=== PATIENT | female | born 1950 | race Caucasian/White ===

== ENCOUNTER 2022-02-28 09:45 | Outpatient (RCR) | payer OTHER, MEDICARE, SELFPAY ==
--- NOTE | 2022-01-05 11:46 | PTOPEVAL ---
PHYSICAL THERAPY EVALUATION AND PLAN OF CARE 01-05-22 Thank you for referring Ruth Mahoney to [facility] [place]. She is scheduled to be seen for therapy? 3 x/week for 5 weeks. Please review, sign, date and return this plan of care [facility]. I agree with and certify that the following plan of care is medically necessary. Referring Physician Date Attending Provider: Nikolas Hernandez MD Past Medical History Source of Past Medical History Recalled from Previous Visit, Confirmed with Patient/Family Neurological History Hx Neurological Disorders No Significant History Cardiovascular History Hx Cardiac Disorders No Significant History Respiratory History Hx Respiratory Disorders No Significant History Gastrointestinal History Hx Cholecystectomy Yes Genitourinary History Hx Genitourinary Disorders No Significant History Musculoskeletal History Hx Arthritis Yes: B knee pain; B hip pain Hx Orthopedic Surgery Yes: L elbow fracture with surgical repari Hematological History Hx Hematological Disorders No Significant History Endocrine History Hx Endocrine Disorders No Significant History HEENT History Hx HEENT Disorders No Significant History Integumentary History Hx Skin Disorders No Significant History Reproductive History Hx Reproductive Disorders No Significant History Other History Hx Other Medical Conditions Yes: obesity, recent loss of 66# due to illness/ hospitalization Evaluation Information Problem Diagnosis B LE lymphedema Onset Sep 20, 2021 Prior Level of Function Home Setting Home Type House,Multiple Levels Environmental Barriers Stairs, Greater than 4 Living Situation With Spouse Support Available Local Family Support Mobility Assistive Devices (Used Last 3 None,Cane,Walker, Standard, Months) Wheelchair, Manual Comments Additional Prior Level of Function prior to hospitalization in Comments October, was indep and home without assistive device; [facility] now for rehab, since Nov 22 ; Pain Assessment Timing of Pain Assessment Timing of Pain Assessment Assessment Pain Scale Pain Scale Used Numeric (1 - 10) Self Report Pain Assessment Bilateral Leg(s) Reported Pain Level 6 Pain Description Heavy,Tightness Pain Frequency Chronic,Continuous Pain Aggravating Factors Exercise/Activity,Walking, Weight Bearing/Standing Pain Score Pain Score 6: Self Report Interventions Used Interventions Used By Clinicians Education
--- NOTE | 2022-01-27 10:46 | PCPTNOTE ---
pt signed consent for release of info to [employer] for copy of face sheet/registration sheet and initial evaluation; for pt to obtain home intermittent compression pump;
--- NOTE | 2022-02-11 11:47 | PTOPEVAL ---
PHYSICAL THERAPY REEVALUATION AND UPDATED PLAN OF CARE 02-11-22 Refer to the clinical summary below, for her status today, compared to the initial evaluation. The goals were partially achieved. Continue PT treatment 3x/wk for 3 weeks. Thank you for referring Ruth Chaparroer to [facility].? Please review, sign, date and return this updated plan of care [facility]. I agree with and certify that the following plan of care is medically necessary. Referring Physician Date Attending Provider: Nikolas Hernandez MD Subjective Information Kriss reports: leg is about at Query Text:As Reported By Patient/ the usual size; ordered the Family thigh high garment and is to arrive this weekend; continues to do [facility] for leg strength and walking; Pain Scale Pain Scale Used Numeric (1 - 10) Self Report Pain Assessment Bilateral Leg(s) Reported Pain Level 0 Pain Frequency Chronic,Intermittent Other Pain Description B knees and hips hurt--hips less since injections Lowest Pain Intensity 0 Greatest Pain Intensity 8 Pain Aggravating Factors Walking,Weight Bearing/ Standing General Lower Extremity Range of Motion Gross Lower Extremity Range of Motion sitting knee: R extension (-5) Comments and L knee (-5) to 95' Bed Mobility Assessment Bed Mobility Supine to Sit Ability Minimum Assistance X 1 Sit to Supine Ability Minimum Assistance X 1 Cues Needed for Bed Mobility Tactile Bed Mobility Comments requires assist with legs on/ off mat; Skin Inspection Location Left Lower Extremity Skin Observations Absence of Leg Hair,Dorsum Foot Swelling,Hyperkeratosis, Hyperpigmentation,Hyperplasia, Lipedema,Obesity,Swollen, Squared off Toes Lymphedema Stage I Skin Inspection Comment R LE: no fibrotic tissue over lower leg; from 28 cm from bottom of foot to 16 cm- discoloration of skin- reddish - brown; no dry flaking skin over leg; knee and thigh with good skin color; --------- pt reports dr restarted her lasix today, due to gaining 10 #, had been off it; LE Circumferential Measurement LE Lymphedema Side Left Met
--- NOTE | 2022-02-28 10:45 | PTOPEVAL ---
PHYSICAL THERAPY DISCHARGE 02-28-22 Refer to the clinical summary below, for her status today, compared to the last reevaluation. The goals were partially achieved. Discharge PT services. Thank you for referring Ruth Mahoney to [facility].? Please review, sign, date and return this Discharge report [facility]. I agree with and certify that the following plan of care is medically necessary. Referring Physician Date Attending Provider: Nikolas Hernandez MD Subjective Information Ruth Monterroso reports: doing OK Query Text:As Reported By Patient/ with the thigh high socks; no Family problems with putting them on or taking off; is using her home intermittent compression pump at least 1x/day; going home from [facility] on Mon, in 2 days; has lost 50# in the past 4 months; agree for discharge from PT for legs; Pain Assessment Pain Scale Pain Scale Used Numeric (1 - 10) Self Report Pain Assessment Bilateral Leg(s) Reported Pain Level 2 Pain Description Soreness,Tender on Palpation Radicular Pain Location both legs and knees hurt, with standing up Pain Frequency Acute,Continuous Other Pain Description R posterior calf- over gastroc , raw and tender feeling Lowest Pain Intensity 0 Greatest Pain Intensity 7 Pain Score Pain Score 2: Self Report Gross Lower Extremity Range of Motion in sitting: active knee Comments extension to 0' R and L; able to lift LE's on/off mat without assist; Skin Inspection Location Left Lower Extremity,Right Lower Extremity Skin Observations Absence of Leg Hair,Lipedema, Obesity Palpation Findings Cool Skin Temperature Tissue Texture Firm Lymphedema Stage II Skin Inspection Comment R LE: firmness and redness over distal posterior calf, with reports of tenderness over area; dorsum of foot and toes without edema; minimal redness over lower leg, from bottom of foot to ~ 20 cm L LE: no fibrotic tissue; no edema over dorsum of foot; big and 2nd toe with edema and redness; lower leg with minimal redness to ~ 20 cm
== END 2022-03-01 12:48 | disposition home or self-care (01) ==
LOC: ANHPT 09:45
PROVIDERS: PCP Family Medicine; Referring Provider Family Medicine; Visit Provider Family Medicine
DX: I89.0 Lymphedema, not elsewhere classified (principal)
CPT/HCPCS: 29581; 97140; 97162

== ENCOUNTER 2022-03-31 11:20 | Outpatient (NON) | payer MEDICARE, SELFPAY ==
[2022-03-31 11:48] LABS: Basophils Percent Auto 0.4 % (0.2-1.2); Eosinophils Absolute Auto 0.1 K/mm3 (0-0.3); Eosinophils Percent Auto 1.8 % (0-4.4); Hematocrit 41.4 % (37.0-47.0); Hemoglobin 13.5 g/dL (12.0-15.0); Immature Granulocyte Absolute 0.02 K/mm3 (0.00-0.031); Immature Granulocyte Percent A 0.4 % (0-0.5); Lymphocytes Absolute Auto 1.91 K/mm3 (0.9-3.2); Lymphocytes Percent Auto 42.6 % (18.3-44.2); Mean Corpuscular HGB Conc 32.6 g/dl (32-36); Mean Platelet Volume 10.9 fl (7.4-10.4); Monocytes Absolute Auto 0.3 K/mm3 (0.1-0.6); Monocytes Percent Auto 7.6 % (2.6-8.5); Neutrophils Absolute Auto 2.1 K/mm3 (1.3-6.7); Neutrophils Percent Auto 47.2 % (45.5-73.1); Platelet Count Result 252 k/mm3 (150-375); Red Cell Distribution Width 14.3 % (11.5-14.5); White Blood Count 4.5 K/mm3 (4.5-10.0)
[2022-03-31 11:55] LABS: Alanine Aminotransferase 14 U/L (6-35); Albumin Level 3.7 g/dL (3.5-5.1); Alkaline Phosphatase 87 U/L (38-126); Anion Gap 4 mmol/L (8-16); Aspartate Amino Transferase 20 U/L (14-36); Bilirubin,Total 0.6 mg/dL (0.2-1.3); Blood Urea Nitrogen 15 mg/dL (7-17); Carbon Dioxide 29 mmol/L (22-30); Chloride 104 mmol/L (98-107); Estimated Glomerular Filt Rate > 60; Glucose 92 mg/dL (65-110); Potassium 3.2 mmol/L (3.4-5.0); Sodium 137 mmol/L (137-145)
== END 2022-03-31 11:21 | disposition home or self-care (01) ==
PROVIDERS: PCP Family Medicine; Visit Provider Family Medicine
DX: I89.0 Lymphedema, not elsewhere classified (principal); I10 Essential (primary) hypertension; I26.99 Other pulmonary embolism without acute cor pulmonale; M17.0 Bilateral primary osteoarthritis of knee
CPT/HCPCS: 80053; 85025